=== PATIENT | female | born 1990 | race Hispanic/Latino ===

== ENCOUNTER 2019-10-07 17:38 | Emergency (ER) | payer BC, OTHER, SELFPAY ==
[2019-10-07 17:50] VITALS: BP 134/80; PULSE 94; RESP 16; TEMP 36.2; O2SAT 97; BMI 48.4
--- NOTE | 2019-10-07 17:59 | ED_ITS ---
HPI - Wound/Laceration <DONG Bhatt - Last Filed: 10/07/19 21:39> General Chief Complaint: Wound/Laceration Stated Complaint: fall, Right knee wound Time Seen by Provider: 10/07/19 17:49 History of Present Illness HPI narrative: 28yo female with a history of diabetes, presents emergency department for a laceration on her right knee after a fall. She states she was walking when she tripped over something on the trail and fell forward landing on her butt and rolling to R knee. Patient states the bleeding was controlled on her laceration with some pressure. Patient states the area is tender, she was able to bear weight on her leg. Patient states she is up-to-date on her Tdap. Patient denies any other injury, head injury, neck pain, fevers, chills, nausea, vomiting, diarrhea, chest pain, or any other concerns. Related Data Previous Rx's Medication Instructions Recorded ibuprofen 600 mg PO Q6H PRN #20 tab 10/07/19 Allergies Allergy/AdvReac Type Severity Reaction Status Date / Time Penicillins Allergy Anaphylaxis Verified 10/07/19 18:28 Review of Systems <DONG Bhatt - Last Filed: 10/07/19 21:39> Review of Systems Narrative: REVIEW OF SYSTEMS: GENERAL: Denies fever or chills. HENT: No head trauma. CARDIOVASCULAR: No syncope. RESPIRATORY: No cough. GASTROINTESTINAL: No nausea, vomiting, diarrhea, or constipation. MUSCULOSKELETAL: Complains right knee laceration see HPI. INTEGUMENTARY: No rash, lesions, or pruritus. NEURO: No numbness, tingling. Patient History <DONG Bhatt - Last Filed: 10/07/19 21:39> Medical History Diabetes (Acute) Social History Smoking Status: Never smoker Smoking Status: Never smoker Exam <DONG Bhatt - Last Filed: 10/07/19 21:39> Initial Vital Signs Initial Vital Signs: Vital Signs Temperature 97.1 F L 10/07/19 17:50 Pulse Rate 94 H 10/07/19 17:50 Respiratory Rate 16 05/10/20 17:50 Blood Pressure 134/80 05/10/20 17:50 Pulse Oximetry 97 10/07/19 17:50 PHYSICAL EXAMINATION: GENERAL: Well groomed, alert, and cooperative. Answers questions promptly and appropriately. Vital signs noted. HENT: Normocephalic, atraumatic. RESPIRATORY: Normal respiratory rate, trachea midline, airway patent. No stridor, nasal flaring or accessory muscle use. MUSCULOSKELETAL: Normal gait and coordination. Equal tone and mass bilaterally. EXTREMITIES: CMS intact. Moves all extremities. SKIN: Warm, dry, soft, appropriate color for ethnicity. 4.5 cm laceration to right knee towards distal and of patella area, wound extensively explored and irrigated no foreign bodies. Dr. Angeles at bedside to palpate knee, wound is approximately 6-7 cm above calcification noted on x-ray. Both I and Dr. Angeles did not appreciate any foreign body or mass with palpation of the tibial tu berosity, patella, or knee joint. No significant ecchymosis or swelling noted to the knee. Patient has slightly decreased limitation to knee flexion due to pain of laceration. NEURO: Alert and Oriented X 3. Good coordination. PSYCH: Appropriate affect and mood. <Enrique Angeles DO - Last Filed: 10/08/19 01:12> Initial Vital Signs Initial Vital Signs: Vital Signs Temperature 97.1 F L 10/07/19 17:50 Pulse Rate 94 H 10/07/19 17:50 Respiratory Rate 16 10/07/19 17:50 Blood Pressure 134/80 10/07/19 17:50 Pulse Oximetry 97 10/07/19 17:50 Procedures <DONG Bhatt - Last Filed: 10/07/19 21:39> Laceration Repair Laceration 1: Site: lower extremity Side (If applicable): right Size (cm): 4.5 Description: linear Depth: simple, single layer Amount of anesthesia used (mL): 10 Pre-repair: wound explored and deep structures intact Skin layer closed with: nylon Size (cm): 4-0 Number of sutures: 5 Technique: simple, interrupted Subcutaneous layer closed with: chromic gut Size: 4-0 Number of sutures: 1 Technique: other (Mattress suture) Course <DONG Bhatt - Last Filed: 10/07/19 21:39> Course Course Narrative: Spoke with Dr. Clarke who reviewed calcification on x-ray, does not believe this is a fracture, increased concern for foreign body. Dr. Angeles extensively palpated knee, denies appreciate mass or abnormality as seen on x-ray. Orders Ordered: ED Orders 10/07/19 17:57 XR knee RT 3V Stat Discontinued Medications Bacitracin (Bacitracin) 1 applic TOP NOW ONE Stop: 10/07/19 17:59 Last Admin: 10/07/19 18:31 Dose: 1 applic Documented by: WALESKA Ketorolac Tromethamine (Toradol) 30 mg IM NOW ONE Stop: 10/07/19 18:27 Last Admin: 10/07/19 18:32 Dose: 30 mg Documented by: WALESKA Lidocaine/Sodium Bicarbonate (Buffered Lidocaine 10 Ml Syr) 10 ml INJ NOW ONE Stop: 10/07/19 17:59 Last Admin: 10/07/19 18:32 Dose: 10 ml Documented by: WALESKA Consultations Consultation #1: Staffed with Dr. Angeles, see above. Vital Signs Vital signs: Vital Signs - 8 hr 10/07/19 17:50 10/07/19 19:51 Temperature 97.1 F L Pulse Rate 94 H 82 Respiratory Rate 16 18 Blood Pressure 134/80 Blood Pressure [Left Arm] 165/94 H Pulse Oximetry 97 96 <Enrique Angeles, DO - Last Filed: 10/08/19 01:12> Orders Ordered: ED Orders 10/07/19 17:57 XR knee RT 3V Stat Discontinued Medications Bacitracin (Bacitracin) 1 applic TOP NOW ONE Stop: 10/07/19 17:59 Last Admin: 10/07/19 18:31 Dose: 1 applic Documented by: WALESKA Ketorolac Tromethamine (Toradol) 30 mg IM NOW ONE Stop: 10/07/19 18:27 Last Admin: 10/07/19 18:32 Dose: 30 mg Documented by: WALESKA Lidocaine/Sodium Bicarbonate (Buffered Lidocaine 10 Ml Syr) 10 ml INJ NOW ONE Stop: 10/07/19 17:59 Last Admin: 10/07/19 18:32 Dose: 10 ml Documented by: WALESKA Vital Signs Vital signs: Vital Signs - 8 hr 10/07/19 17:50 10/07/19 19:51 Temperature 97.1 F L Pulse Rate 94 H 82 Respiratory Rate 16 18 Blood Pressure 134/80 Blood Pressure [Left Arm] 165/94 H Pulse Oximetry 97 96 [facility] - Wound/Laceration <DONG Bhatt - Last Filed: 10/07/19 21:39> Medical Records Attestation: I reviewed the patient's medical records. Lab Data Attestation: I reviewed the patient's lab results. Imaging Data Extremity x-ray #1: Radiologist's Impression: [address] [address] XRay Report Signed Patient: Melissa Gomez EMR#: [id number] : 1990Acct:[id number] Age/Sex: 28 / FDate of Service: 10/07/19 Loc: ED Accession Number: [id number] Procedure: XR knee RT 3V Ordering Provider: Dyan Nazario PROCEDURE: XR KNEE RT 3V INDICATIONS: Fall with Lac to R knee, r/o patella injury TECHNIQUE: 3 views of the knee were acquired. COMPARISON: None. FINDINGS: Bones: Small calcification is overlying the soft tissues approximately 1 cm anterior to the proximal tibia. No suspicious bony lesions. Patella is intact. Soft tissues: No joint effusion. No suspicious soft tissue calcifications. IMPRESSION: Small calcification overlying the soft tissues anterior to the tibia. No direct donor site is identified. This could be chronic. However, avulsion fracture cannot be definitively excluded. Short interval imaging followup is recommended as indicated. Dictated by: Anat Willis M.D. on 10/07/2019 at 18:19 Approved by: Anat Willis M.D. on 10/07/2019 at 18:20 [facility] Narrative Medical decision making narrative: 28-year-old female presents emergency department for simple laceration repair after a fall. No concern for head trauma due to lack of physical trauma, patient denies head trauma, and no reports of syncope. X-ray was taken to rule out any fractures due to pain in each of injury. Small calcification was seen on x-ray that does not correlate to laceration. However, and consulted, Vince Cuba for a further opinion on possible pressure, he did not believe this to be a fracture but may be a possible foreign body. After extensive exploration of wound no foreign body was found, wound was not large enough for a foreign body of the abscess tender. Dr. Angeles also palpated the joint, without identification of mass. I suspect this most likely a organic calcification. No need for antibiotics at this time due to extensive irrigation, no concerns for open fracture. Patient was encouraged to watch for signs of infection and follow up for suture removal. She agreed to plan of care and verbalized understanding. <Enrique Angeles, DO - Last Filed: 10/08/19 01:12> [facility] Narrative Medical decision making narrative: I did evaluate this patient with the APC. This was an attempt to identify with the calcification was which seemed to be very superficial on the anterior portion of the knee. This calcification was seen on the x-ray. Upon my evaluation I do not feel that this is an acute avulsion fracture. Calcification is not palpable under the skin which I would expected to be given the location of it on the x-ray. APC stated that she explored the wound prior to suturing it and could not find any foreign bodies. Asking the patient she stated that she hit her knee on a rock and there were other small rocks around but nothing that would be consistent with gravel. I feel that would potentially cause more damage by removing the stitches in continue to explore for this finding on the x-ray. We will hold on further workup. Patient was given return precautions and follow-up instructions. Discharge Plan Departure Patient Disposition: Home Clinical Impression: Laceration Discharge Date/Time: 10/07/19 20:00 Instructions: DI for Laceration Repair Activity Restrictions/Additional Instructions: Thank you for entrusting me with your care today. As discussed, your laceration has been repaired with 5 sutures that will need to be removed in 12-14 days, can be done at a walk-in clinic or your primary care provider's office.. Please keep the dressing in place for the next 24 hours. After that time frame, you may remove the dressing and gently wash the area. Apply Neosporin or bacitracin to the area who morning and night. You do not have to keep the area covered. Watch for signs of infection such as increasing pain, redness, fever, or pus-if this occurs please be seen immediately. Use the John wrap to support your knee and prevent excessive bending. Elevate the leg as much as possible for the next few days. I prescribed you ibuprofen, you may take this every 8 hours as needed for pain. Prescriptions: New ibuprofen 600 mg tablet 600 mg PO Q6H PRN (Reason: pain) Qty: 20 RF: 0 Stand Alone Forms: Work Release Note
[2019-10-07] MEDS: BACITRACIN OINT 0.9 GM PCKT 1 APPLIC TOP (18:31)
[2019-10-07] MEDS: LIDO 1%/SOD BICARB 8.4% (10ML) 10 ML SYRINGE INJ (18:32)
[2019-10-07] MEDS: KETOROLAC 60 MG/2 ML VIAL 30 MG IM (18:32)
[2019-10-07 19:51] VITALS: BP 165/94; PULSE 82; RESP 18; O2SAT 96
== END 2019-10-07 20:00 | disposition home or self-care (01) ==
PROVIDERS: Emergency Provider Nurse Practitioner
DX: S81.011A Laceration without foreign body, right knee, initial encounter (principal); W19.XXXA Unspecified fall, initial encounter
CPT/HCPCS: 12002; 73562; 96372; 99283; 99284; J1885